=== PATIENT | male | born 1975 | race American Indian/Alaskan Native ===

== ENCOUNTER 2021-02-03 04:01 | Emergency (ER) | payer BC ==
[2021-02-03 04:21] VITALS: BP 138/87
--- NOTE | 2021-02-03 08:10 | Emergency Department Report ---
ED Male HPI - General Chief complaint: Abdominal Pain Stated complaint: BLOOD IN URINE Time Seen by Provider: 02/03/21 08:08 Source: patient Mode of arrival: Ambulatory Limitations: No Limitations - History of Present Illness Initial comments: 46-year-old morbid obese -[place] male presents to the emergency room complaining of left flank pain that radiates to his left lower abdomen that started last night. Patient states that he noticed blood in his urine last night. Patient states his pain is about a 8 out of 10 on the pain scale. Piper wong reports he has a past medical history of hypertension hypercholesterolemia and vitamin D deficiency. Patient states he is currently on metoprolol 25 mg atorvastatin 20 mg and vitamin D 50,000 units weekly. Patient denies any past medical history patient denies any testicular pain no testicular swelling denies any penile discharge not concerned for STD no fevers no chills no chest pain. -: Last night Location: left flank Radiation: other (Left lower quadrant) Severity scale (0 -10): 8 Quality: sharp, dull Consistency: intermittent Improves with: none Worsens with: urination blood in urine - Related Data Previous Rx's Medication Instructions Recorded Last Taken Type HYDROcodone/APAP 10-325 [Montrose 1 each PO Q8HR PRN #12 tablet 02/03/21 Unknown Rx 10/325] Tamsulosin [Flomax] 0.4 mg PO QDAY #5 cap 02/03/21 Unknown Rx Allergies Allergy/AdvReac Type Severity Reaction Status Date / Time No Known Allergies Allergy Unverified 02/03/21 04:17 ED Review of Systems ROS: Stated complaint: BLOOD IN URINE Other details as noted in HPI Comment: All other systems reviewed and negative ED Past Medical Hx - Past Medical History Previous Medical History?: No - Surgical History Past Surgical History?: No - Social History Smoking Status: Never Smoker Substance Use Type: None - Medications Home Medications: Home Medications Medication Instructions Recorded Confirmed Last Taken Type HYDROcodone/APAP 10-325 [Montrose 1 each PO Q8HR PRN #12 tablet 02/03/21 Unknown Rx 10/325] Tamsulosin [Flomax] 0.4 mg PO QDAY #5 cap 02/03/21 Unknown Rx ED Physical Exam - General Limitations: No Limitations General appearance: alert, in no apparent distress - Head Head exam: Present: atraumatic, normocephalic - Eye Eye exam: Present: normal appearance - ENT ENT exam: Present: normal external ear exam - Neck Neck exam: Present: normal inspection, full ROM - Respiratory Respiratory exam: Absent: accessory muscle use - Cardiovascular Cardiovascular Exam: Present: regular rate - GI/Abdominal GI/Abdominal exam: Present: soft, tenderness. Absent: distended, guarding (Left lower quadrant), rebound - Extremities Exam Extremities exam: Present: normal inspection, full ROM - Back Exam Back exam: Present: normal inspection - Neurological Exam Neurological exam: Present: alert, oriented X3, normal gait - Psychiatric Psychiatric exam: Present: normal affect, normal mood - Skin Skin exam: Present: warm, dry, intact, normal color. Absent: rash ED Course Vital Signs 02/03/21 04:20 Temperature 98.4 F Pulse Rate 67 Respiratory 18 Rate Blood Pressure 138/87 O2 Sat by Pulse 99 Oximetry ED Medical Decision Making - Radiology Data Radiology results: report reviewed [facility] [address] [id number] Cat Scan Report Signed Patient: FRANCIS ELY MR#: [id number] 2 : 1975 Acct:[id number] Age/Sex: 46 / M ADM Date: 02/03/21 Loc: ED Attending Dr: Ordering Physician: FRED WOLFE Date of Service: 02/03/21 Procedure(s): CT abdomen pelvis wo con Accession Number(s): [id number] cc: FRED WOLFE CT ABDOMEN AND PELVIS WITHOUT CONTRAST INDICATION / CLINICAL INFORMATION: Pt complains of LEFT sided pain with Hematuria. TECHNIQUE: Axial CT images were obtained through the abdomen and pelvis without IV contrast. All CT scans at this location are performed using CT dose reduction for ALARA by means of automated exposure control. COMPARISON: None available. FINDINGS: LOWER CHEST: No significant abnormality. LIVER: No significant abnormality. GALLBLADDER: No significant abnormality. BILE DUCTS: No significant abnormality. PANCREAS: No significant abnormality. SPLEEN: No significant abnormality. ADRENALS: No significant abnormality. RIGHT KIDNEY / URETER: Simple cyst right lower pole measuring approximately 2.2 cm. LEFT KIDNEY / URETER: There is mild left hydroureteronephrosis secondary to a 5 mm stone at the orifice of the left UVJ. STOMACH / SMALL BOWEL: No significant abnormality. COLON: Diverticulosis without acute inflammation. APPENDIX: No significant abnormality. PERITONEUM: No free fluid. No free air. No fluid collection. LYMPH NODES: No significant adenopathy. AORTA / ARTERIES: No significant abnormality. IVC / VEINS: No significant abnormality. URINARY BLADDER: No significant abnormality. REPRODUCTIVE ORGANS: No significant abnormality. ADDITIONAL FINDINGS: Small umbilical hernia containing fat and nondilated small bowel. SKELETAL SYSTEM: Degenerative changes at L5-S1. No aggressive osseous lesion. IMPRESSION: 1. Left mild hydroureteronephrosis secondary to 5 mm stone at the orifice of left UVJ. 2. Incidental findings as above. Signer Name: Raymundo Aguilar MD Signed: 02/03/2021 9:56 AM Workstation Name: [id number] Transcribed By: DB Dictated By: RAYMUNDO AGUILAR MD Electronically Authenticated By: RAYMUNDO AGUILAR MD Signed Date/Time: 02/03/21955 DD/ 0 TD/TT: Print Cancel - Medical Decision Making 46-year-old morbid obese -[place] male presents to the emergency room complaining of left flank pain that radiates to his left lower abdomen that started last night. Patient states that he noticed blood in his urine last night. Patient states his pain is about a 8 out of 10 on the pain scale. Patient reports he has a past medical history of hypertension hypercholesterolemia and vitamin D deficiency. Patient states he is currently on metoprolol 25 mg atorvastatin 20 mg and vitamin D 50,000 units weekly. Patient denies any past medical history patient denies any testicular pain no testicular swelling denies any penile discharge not concerned for STD no fevers no chills no chest pain. Urinalysis and CT of abdomen and pelvis without contrast. Critical care attestation.: If time is entered above; I have spent that time in minutes in the direct care of this critically ill patient, excluding procedure time. ED Disposition Clinical Impression: Left renal stone Hydronephrosis Qualifiers: Hydronephrosis type: with renal calculous obstruction Qualified Code(s): N13.2 - Hydronephrosis with renal and ureteral calculous obstruction Disposition: HOME / SELF CARE / HOMELESS Is pt being admited?: No Does the pt Need Aspirin: No Condition: Stable Instructions: Kidney Stones, [id number] Additional Instructions: CT scan shows she has a 5 mm left renal calculi. Recommendations are to increase your fluid intake take your pain medication and your Flomax. Is very important you follow-up with urology and your primary care provider in the next 3 days. Prescriptions: Tamsulosin [Flomax] 0.4 mg PO QDAY #5 cap HYDROcodone/APAP 10-325 [Montrose 10/325] 1 each PO Q8HR PRN #12 tablet PRN Reason: Pain Referrals: PRIMARY CAREMD [Primary Care Provider] - 3-5 Days [facility] [Provider Group] - 3-5 Days Forms: Work/School Release Form(ED) Time of Disposition: 10:17
[2021-02-03 08:53] LABS: Bilirubin,Urine NEG (Negative); Blood,Urine LG (Negative); Color,Urine Yellow (Yellow); Mucus,Urine 2+ /HPF; Urobilinogen,Urine < 2.0 mg/dL (<2.0)
--- NOTE | 2021-02-03 10:00 | Cat Scan Report ---
CT ABDOMEN AND PELVIS WITHOUT CONTRAST INDICATION / CLINICAL INFORMATION: Pt complains of LEFT sided pain with Hematuria. TECHNIQUE: Axial CT images were obtained through the abdomen and pelvis without IV contrast. All CT scans at this location are performed using CT dose reduction for ALARA by means of automated exposure control. COMPARISON: None available. FINDINGS: LOWER CHEST: No significant abnormality. LIVER: No significant abnormality. GALLBLADDER: No significant abnormality. BILE DUCTS: No significant abnormality. PANCREAS: No significant abnormality. SPLEEN: No significant abnormality. ADRENALS: No significant abnormality. RIGHT KIDNEY / URETER: Simple cyst right lower pole measuring approximately 2.2 cm. LEFT KIDNEY / URETER: There is mild left hydroureteronephrosis secondary to a 5 mm stone at the orifi ce of the left UVJ. STOMACH / SMALL BOWEL: No significant abnormality. COLON: Diverticulosis without acute inflammation. APPENDIX: No significant abnormality. PERITONEUM: No free fluid. No free air. No fluid collection. LYMPH NODES: No significant adenopathy. AORTA / ARTERIES: No significant abnormality. IVC / VEINS: No significant abnormality. URINARY BLADDER: No significant abnormality. REPRODUCTIVE ORGANS: No significant abnormality. ADDITIONAL FINDINGS: Small umbilical hernia containing fat and nondilated small bowel. SKELETAL SYSTEM: Degenerative changes at L5-S1. No aggressive osseous lesion. IMPRESSION: 1. Left mild hydroureteronephrosis secondary to 5 mm stone at the orifice of left UVJ. 2. Incidental findings as above. Signer Name: Raymundo Aguilar MD Signed: 02/03/2021 9:56 AM Workstation Name: [id number]
== END 2021-02-03 10:29 | disposition home or self-care (01) ==
LOC: ED 04:01
DX: N13.2 Hydronephrosis with renal and ureteral calculous obstruction (principal)
CPT/HCPCS: 74176; 81001; 99283